=== PATIENT | female | born 1935 | race Caucasian/White ===

== ENCOUNTER 2022-02-10 11:16 | Emergency (ER) | payer OTHER ==
[~2022-02-10] VITALS: Ht 162.6 cm; Wt 91.2 kg
[2022-02-10 11:58] LABS: BASOPHILS % (AUTO) 0.3 % (0.0-5.0); EOSINOPHILS % (AUTO) 0.7 % (0.0-8.0); HEMATOCRIT 40.5 % (36-48); LYMPHOCYTES % (AUTO) 16.6 % (21.0-51.0); MEAN CORPUSCULAR HEMOGLOBIN 30.6 pg (27.0-33.0); MEAN CORPUSCULAR HGB CONC 32.3 g/dL (32.0-36.0); MEAN CORPUSCULAR VOLUME 94.6 fL (79-99); MONOCYTES % (AUTO) 8.2 % (3.0-13.0); NEUTROPHILS % (AUTO) 74.1 % (40.0-77.0); PLATELET COUNT (AUTO) 199 K/uL (130-400); RED BLOOD CELL COUNT(AUTO) 4.28 MIL/uL (4.00-5.50); RED CELL DISTRIBUTION WIDTH 14.4 % (11.0-15.5); WHITE BLOOD COUNT (AUTO) 8.9 K/uL (4.8-10.8)
[2022-02-10 12:15] LABS: INR 2.47 (0.85-1.15); PROTHROMBIN TIME 25.6 SEC (9.6-11.6)
[2022-02-10 12:16] LABS: POTASSIUM 4.2 mmol/L (3.5-5.1)
[2022-02-10] MEDS ORDERED: ACET-66 PO (12:18)
[2022-02-10 12:19] VITALS: BP 148/78
[2022-02-10 12:21] LABS: ALBUMIN 3.5 g/dL (3.5-5.0)
== END 2022-02-10 12:39 | disposition home or self-care (01) ==
LOC: EDH 11:16
DX: S00.12XA Contusion of left eyelid and periocular area, initial encounter (principal); M25.512 Pain in left shoulder; E11.9 Type 2 diabetes mellitus without complications; E78.00 Pure hypercholesterolemia, unspecified; I48.91 Unspecified atrial fibrillation; I11.9 Hypertensive heart disease without heart failure; W01.198A Fall on same level from slipping, tripping and stumbling with subsequent striking against other object, initial encounter; Y93.89 Activity, other specified; Y92.89 Other specified places as the place of occurrence of the external cause; Y99.8 Other external cause status
CPT/HCPCS: 36415; 70450; 71045; 73030; 80053; 85025; 85610; 93005

== ENCOUNTER → 2022-04-18 | Outpatient (CLI) | payer OTHER ==
[~2022-04-18] MED LIST: ACET-66 PO
== END | disposition home or self-care (01) ==
LOC: RAH 14:05
PROVIDERS: ATTEND Podiatrist
DX: E11.51 Type 2 diabetes mellitus with diabetic peripheral angiopathy without gangrene (principal)
CPT/HCPCS: 93922

== ENCOUNTER → 2024-07-08 | Outpatient (CLI) | payer OTHER ==
--- NOTE | 2024-07-08 16:24 | HMCIMG ---
US ARTERIAL BILAT LOW EXT DUPL REASON: type 2 diabetes mellitus with other circulation COMPARISON: None TECHNIQUE: Routine arterial Doppler evaluation was performed using spectral analysis and color flow imaging. FINDINGS: Right leg shows normal triphasic waveform common femoral artery through the popliteal artery. Posterior tibial, anterior tibial and dorsalis pedis arteries are biphasic. There is mild flow decrease in the posterior tibial artery, anterior tibial undersurface pedis velocities are preserved. Left leg shows triphasic waveforms common femoral artery through the proximal popliteal artery. Distal popliteal artery is biphasic but with good preservation of flow velocity. Posterior tibial artery shows mild velocity decrease 38 cm/s, there is biphasic waveform. Anterior tibial and dorsalis pedis waveforms are biphasic with normal flow velocity. IMPRESSION: 1. Mild arterial inflow decrease in the posterior tibial arteries bilaterally, the exam is otherwise unremarkable.
== END | disposition home or self-care (01) ==
LOC: RAH 15:07
PROVIDERS: ATTEND Internal Medicine
DX: E11.59 Type 2 diabetes mellitus with other circulatory complications (principal); I77.9 Disorder of arteries and arterioles, unspecified
CPT/HCPCS: 93925